=== PATIENT | female | born 1955 | race Hispanic/Latino ===

== ENCOUNTER 2018-05-24 09:04 | Outpatient (CLI) | payer OTHER ==
[2018-05-24] MEDS ORDERED: NITROSTAT SL ONE ×2 (09:52→10:34)
[2018-05-24] MEDS ORDERED: ATROPINE 0.1% (CARDIAC) ONE (10:34)
[2018-05-24] MEDS ORDERED: LOPRESSOR IV ONE (10:34)
[2018-05-24 12:13] VITALS: BP 94/49
--- NOTE | 2018-05-27 13:02 | Procedure Note ---
CARDIAC CT ANGIOGRAM REPORT INDICATION FOR PROCEDURE: Chest pain. Informed consent was obtained. DESCRIPTION OF PROCEDURE: The patient was brought to the cardiac CT angiography laboratory at [facility] in stable condition after a 4-hour fast. Cardiac CT angiography was performed on the 64 slice scanner using the standard protocol. Heart rate was regulated with beta blockade. Sublingual nitroglycerin was administered prior to imaging. Left ventricular systolic function was evaluated by the volumetric threshold based segmentation approach. A separate radiology assessment of the noncardiac structures in the field of view will be provided. After data acquisition and reconstruction at the computer console, the images were processed and viewed on the computer work station. Volume rendered images, multiplanar reformatted images, and maximum intensity images were generated and reviewed. Multiple phases of the cardiac cycle were assessed as needed for imaging with interpretation. The superior and inferior vena cava in the field of view appear normal. The ascending and descending aorta in the field of view appear normal. The pulmonary artery in the field of view appears normal. The pulmonary veins enter the left atrium appropriately. The left and right ventricles appear normal. The interventricular septum appears normal. The left and right atria appear normal. The interatrial septum appears normal. The left atrial appendage appears normal. There are no intracardiac masses. There is no pericardial effusion. The mitral and aortic valves appear normal. Left ventriculography demonstrates normal end systolic and end diastolic chamber size, wall motion, and left ventricular systolic thickening. The left ventricular ejection fraction is 74%. Coronary angiography reveals a right dominant system. The right coronary artery originates properly from the right coronary cusp. Right coronary artery appears normal. The left main coronary artery originates properly from the left coronary cusp. The left main coronary artery contains a mild amount of calcific nonobstructive plaque at its ostium. The circumflex coronary artery appears normal. The left anterior descending coronary artery contains moderate to dense calcification in its proximal and mid portion. The calcification appears to be nonobstructive, although it is difficult to make this assessment in the midportion of the vessel. The proximal portion of the diagonal branch of the left anterior descending coronary artery, also contains a moderate degree of calcific, but nonobstructive plaque. Cardiac CT demonstrates normal left ventricular systolic function. This is a right dominant system. The coronary arteries originate properly from their respective cusp. The right coronary artery and circumflex coronary artery appear normal. There is a mild amount of nonobstructive calcific plaque in the ostium of the left main coronary artery. The left anterior descending coronary artery contains a moderate degree of calcification in its proximal and mid portion. This appears to be nonobstructive. Although there is an area in the midportion of the LAD where the calcium obscures the lumen rendering assessment of this segment difficult. The procedure was well tolerated. There were no complications. JOB# [id number] [facility]
== END 2018-05-24 12:14 | disposition home or self-care (01) ==
LOC: CT 09:04
PROVIDERS: ATTEND Specialist
DX: R07.89 Other chest pain (principal); R94.39 Abnormal result of other cardiovascular function study; I10 Essential (primary) hypertension; E78.00 Pure hypercholesterolemia, unspecified
CPT/HCPCS: 75574; Q9967; J0461